=== PATIENT | female | born 2000 | race Caucasian/White ===

== ENCOUNTER 2020-08-10 13:12 | Emergency (ER) | payer SELFPAY ==
[~2020-08-10] VITALS: Ht 167.6 cm; Wt 53.0 kg
[2020-08-10] MEDS ORDERED: ACETAMINOPHEN WITH CODEINE 300/30MG TABLET PO ONE (14:30)
[2020-08-10] MEDS ORDERED: IBUP-2028 MT (15:45)
[2020-08-10 16:00] VITALS: BP 99/45
== END 2020-08-10 16:33 | disposition home or self-care (01) ==
LOC: ER 13:12
DX: S62.91XA Unspecified fracture of right hand, initial encounter for closed fracture (principal); Z98.890 Other specified postprocedural states; X58.XXXA Exposure to other specified factors, initial encounter; Y93.89 Activity, other specified; Y92.89 Other specified places as the place of occurrence of the external cause; Y99.8 Other external cause status
CPT/HCPCS: 29125; 73080; 73090; 73130; 81025; 99284